=== PATIENT | female | born 2000 | race Caucasian/White ===

== ENCOUNTER 2022-01-15 12:29 | Emergency (ER) | payer MEDICAID ==
[~2022-01-15] VITALS: Ht 162.6 cm; Wt 57.3 kg
[2022-01-15 13:29] VITALS: BP 132/72
[2022-01-15 15:46] LABS: COVID AG,FIA SOURCE NASAL SWAB
[2022-01-15 16:07] LABS: INFLUENZA TYPE A NEGATIVE FOR TYPE A (NEGATIVE); INFLUENZA TYPE B NEGATIVE FOR TYPE B (NEGATIVE)
[2022-01-15] MEDS ORDERED: PRED-554 PO (16:33)
[2022-01-15] MEDS ORDERED: DIPH50 PO (16:33)
== END 2022-01-15 16:46 | disposition home or self-care (01) ==
LOC: EMS 12:29
DX: L23.9 Allergic contact dermatitis, unspecified cause (principal); R05.9 Cough, unspecified; J34.89 Other specified disorders of nose and nasal sinuses; F12.90 Cannabis use, unspecified, uncomplicated
CPT/HCPCS: 87804; 99283

== ENCOUNTER 2024-01-06 02:49 | Emergency (ER) | payer MEDICAID, OTHER ==
[~2024-01-06] VITALS: Ht 162.6 cm; Wt 59.1 kg
[~2024-01-06 02:49] MED LIST: DIPH50 PO; PRED-554 PO
[2024-01-06 02:53] VITALS: TEMP 98.7
[2024-01-06] MEDS: ACETAMINOPHEN 500 MG TABLET PO ONE (03:12)
[2024-01-06 03:22] LABS: BASOPHILS % (AUTO) 0.4 % (0.0-2.0); HEMATOCRIT 33.9 % (36-46); HEMOGLOBIN 11.2 g/dL (12.0-16.0); LYMPHOCYTES # (AUTO) 2.1 K/uL (1.0-4.8); LYMPHOCYTES % (AUTO) 20.5 % (22.0-44.0); MEAN CORPUSCULAR HGB CONC 33.1 G/dL (31.0-37.0); MEAN CORPUSCULAR VOLUME 88 fL (80-100); MONOCYTES # (AUTO) 0.7 K/uL (0.1-1.0); MONOCYTES % (AUTO) 6.7 % (2.0-9.0); NEUTROPHILS # (AUTO) 7.1 K/uL (1.8-7.7); NEUTROPHILS % (AUTO) 69.4 % (40.0-70.0); PLATELET COUNT (AUTO) 236 K/uL (150-450); RED BLOOD CELL COUNT(AUTO) 3.87 MIL/uL (4.00-5.20); RED CELL DISTRIBUTION WIDTH 13.8 % (11.5-14.5); WHITE BLOOD COUNT (AUTO) 10.2 K/uL (4.5-11.0)
[2024-01-06 03:27] LABS: ANION GAP 17 mmol/L (8-16); CALCIUM, TOTAL 8.2 mg/dL (8.8-10.5); CARBON DIOXIDE 20 mmol/L (22-29); CHLORIDE 102 mmol/L (98-107); CREATININE 0.55 mg/dL (0.60-1.30); GLOMERULAR FILTR. RATE CALC > 60 mL/min (>60); GLUCOSE,RANDOM 81 mg/dL (70-110); POTASSIUM 3.5 mmol/L (3.5-5.1); SODIUM SERUM 139 mmol/L (136-145); UREA NITROGEN, BLOOD 8 mg/dL (7-18)
[2024-01-06] MEDS: AMOXICILLIN TRIHYDRATE 250 MG CAPSULE PO ONE (03:40)
[2024-01-06] MEDS: NEOMYCIN/POLYMYXIN B/HYDROCORT 10 ML OTIC SUSPENSION AS ONE (03:40)
[2024-01-06 03:45] LABS: APPEARANCE,URINE HAZY (CLEAR); BILIRUBIN,URINE NEGATIVE (NEGATIVE); COLOR,URINE LIGHT YELLOW (YELLOW); GLUCOSE, URINE (UA) NEGATIVE (NEGATIVE); KETONES,URINE NEGATIVE (NEGATIVE); LEUKOCYTE ESTERASE ,URINE LARGE (NEGATIVE); NITRATE,URINE POSITIVE (NEGATIVE); OCCULT BLOOD,URINE NEGATIVE (NEGATIVE); PROTEIN,URINE NEGATIVE (NEGATIVE); SPECIFIC GRAVITIY, URINE 1.015 (1.003-1.030); UROBILINOGEN,URINE <=1.0 mg/dL (<=1.0)
[2024-01-06 03:53] LABS: ALANINE AMINOTRANSFERASE 12 U/L (12-78); ALBUMIN 3.2 g/dL (3.4-5.0); ALKALINE PHOSPHATASE 71 U/L (46-116); ASPARTATE AMINOTRANSFERASE 14 U/L (15-37); BILIRUBIN,TOTAL 0.2 mg/dL (0.1-1.0); HCG,QUANTITATIVE 8532 mIU/mL (0-6)
[2024-01-06 03:56] LABS: BACTERIA,URINE Many /HPF (None Seen); RBC,URINE None Seen /HPF (0-2); SQUAMOUS EPITHELIAL CELL,UR Few /LPF (None Seen)
[2024-01-06] MEDS: CEPHALEXIN MONOHYDRATE 500 MG CAPSULE PO ONE (04:17)
[2024-01-06] MEDS ORDERED: ACET-3385 PO (04:29)
[2024-01-06] MEDS ORDERED: CEPH-558 PO (04:29)
[2024-01-06] MEDS ORDERED: NEOM10SO14 AS (04:29)
[2024-01-06 06:05] VITALS: BP 107/50; PULSE 83; RESP 20; O2SAT 99
== END 2024-01-06 06:13 | disposition home or self-care (01) ==
LOC: EMS 02:49
DX: O99.512 Diseases of the respiratory system complicating pregnancy, second trimester (principal); O26.892 Other specified pregnancy related conditions, second trimester; H60.92 Unspecified otitis externa, left ear; Z3A.23 23 weeks gestation of pregnancy
CPT/HCPCS: 76805; 80048; 80076; 81001; 84702; 85025; 86901; 87086; 87186; 99284